=== PATIENT | male | born 1975 | race Caucasian/White ===

== ENCOUNTER 2020-01-19 10:58 | Emergency (ER) | payer OTHER, SELFPAY ==
[2020-01-19 10:59] VITALS: BP 161/110; PULSE 90; RESP 16; TEMP 36.4; BMI 29.8
--- NOTE | 2020-01-19 11:15 | ED.VIS.UPPEX ---
History of Present Illness Chief Complaint: Upper Extremity Injury Informant: Patient Occurred: Today - EVI Mechanism/Context: Injury, Work Related Context: Sudden Onset - stuck in a machine Timing: Continuous Quality of Pain: - - sore Location: left long finger Current Severity: Mild Maximum Severity: Moderate Worsened by: palpation Relieved by: leaving alone Associated Symptoms: Negative for: Parasthesia, Weakness, Loss of Funtion Narrative: Patient was at work today, he was trying to clear a jam in a machine, he thought that the machine was off and stuck, however when he cleared to jam it was still on and moved, jamming his finger in the hole that he put it through to clear the jam. He is right-hand dominant. Injured only his left long finger. Tetanus Immunization: 5-10 years Past Medical History - Allergies and Home Meds Allergies/Adverse Reactions: Allergies Penicillins Allergy (Verified 01/19/20 11:02) PT UNSURE OF REACTION Past Medical History: None Lives: With Family Drugs: None Review of Systems Gastrointestinal: Denies: Nausea, Vomiting Musculoskeletal: Reports: Extremity Pain. Denies: Swelling Skin: Reports: Wounds. Denies: Abscess Neurological: Denies: Headache, Weakness, Numbness Physical Exam Vital Signs/Narrative: Vital Signs Temp Pulse Resp BP 01/19/20 10:59 97.6 F L 90 16 161/110 H General: Well nourished, Well developed, - - NAD Head: Normocephalic, Atraumatic Extremeties: All tendon function including FDP of the left long finger are intact. Extensor intact. Only injury is to the long finger on the left, distal phalanx. There is bruising at the pad but the skin is intact there. There is a laceration completely across the nail, it from the proximal aspect, which is intact in the root/cuticle without any disruption or trauma there. Laceration progresses into the nailbed with some minor bleeding present. Entire distal phalanx is tender but there is no deformity there. Skin: Normal color, Trauma - 1cm laceration to nail and nail bed of left long finger. Volar bruising, but intact. Neurological: Alert, Oriented x3, Cranial nerves II-XII grossly intact, Normal Strength, Normal Sensation, Normal Gait Psychological: Normal affect, Normal Mood Diagnostic/Tx/Re-eval Clinical Impression(s) from Imaging Studies Finger X-Ray 01/19/20 11:30 IMPRESSION: Nondisplaced fracture of the distal phalanx, tuft, of the third digit with soft tissue edema. Electronically Signed: Britney Cronin MD at 12:14 EDT Tel , Service support , - Medical Decision Making X-ray shows a tuft fracture, it is just below the dorsal laceration through the nail bed, making it an open fracture. It was irrigated under pressure, the laceration was repaired after the distal piece of the nail was removed from its remaining attachment to the nailbed, and an antibiotic dressing with a cage splint was placed afterwards. It was tolerated well without complications. He was prescribed Duricef to prevent infection and will follow-up with [facility], he is comfortable with that plan given appropriate work restrictions. Procedures - Lacerations L long finger Length: 1 cm Depth: Sub Q Shape: Linear Prep: Sterile Conditions, Chlorhexadine Laceration repair: Digital block, Irrigated, Lidocaine - 8cc, Skin sutures Irrigated (ml): 50 Number of Sutures/[place]: 2 Suture Information: Ethilon, Simple, 4-0 Comment: Wound at edge of remaining proximal half of nail; proximal aspect of sutures placed through the distal aspect of the nail that is left. Procedure(s): Digital block -- 8 cc total used after isopropanol prep at proximal aspect from a dorsal approach of left long finger. Good anesthesia obtained. Nail removal -- after anesthesia obtained, distal half of nail which was already from the proximal half was gently pried from the nailbed at its remaining attachment without complication or further injury. ED Disposition - Plan for ED Patient: Disposition: Home or Assisted Living Diagnosis: Open fracture of tuft of distal phalanx of finger, Laceration of nail bed of finger Instructions: ED Fx Finger Open, ED Laceration Hand Prescriptions: Cefadroxil Hydrate [Duricef] 500 mg PO BID 5 Days #10 cap Transmission Status: Pending to [facility]/pharmacy #[id number] Referrals: Kervin Feliciano DO [Primary Care Provider] - [facility] [GROUP OF PHYSICIANS] - 10 Day for suture removal Additional Instructions: Visit because the fracture was beneath the laceration, you need to take the attached antibiotics for 5 days until finished, just to prevent infection. If you see any signs or symptoms of infection, which include increased pain, swelling, redness, and/or purulent discharge, either return to the ER or your doctor. The dressing and splint may be taken off to wash your hands and/or shower, then afterwards place antibiotic ointment on the area where the sutures are followed by gauze dressing and replaced the splint. Do this until you are seen at [facility] and told otherwise.
--- NOTE | 2020-01-19 11:30 | RAD_ITS ---
STUDY: X-RAY - LEFT HAND, ATTENTION 3rd FINGER REASON FOR EXAM: Male, 44 years old. CRUSH INJURY TO LEFT DISTAL MIDDLE FINGER TECHNIQUE: 3 view(s) of the finger were obtained. COMPARISON: None. FINDINGS: Normal metacarpal head. Normal metacarpophalangeal joint. Normal proximal phalanx. Normal middle phalanx. There is a nondisplaced fracture of the distal phalanx of the third digit with soft tissue edema. Normal proximal interphalangeal joint. Normal distal interphalangeal joint. RAD/Finger(s) Min 2 Views IMPRESSION: Nondisplaced fracture of the distal phalanx, tuft, of the third digit with soft tissue edema. Electronically Signed: Britney Cronin MD at 12:14 EDT Tel , Service support ,
[2020-01-19 12:42] VITALS: RESP 16
== END 2020-01-19 12:52 | disposition home or self-care (01) ==
PROVIDERS: Emergency Provider Emergency Medicine; PCP Family Medicine
DX: S62.663B Nondisplaced fracture of distal phalanx of left middle finger, initial encounter for open fracture (principal); W31.9XXA Contact with unspecified machinery, initial encounter; Y93.89 Activity, other specified; Y92.89 Other specified places as the place of occurrence of the external cause; Y99.0 Civilian activity done for income or pay
CPT/HCPCS: 11760; 73140; 99284

== ENCOUNTER 2020-12-04 10:17 | Outpatient (RCR) | payer OTHER, SELFPAY ==
[2020-01-29 07:32] VITALS: BMI 29.8
== END 2020-12-04 23:59 ==
LOC: IMMUN 10:17
PROVIDERS: PCP Family Medicine; Visit Provider Family Medicine
DX: Z23 Encounter for immunization (principal)
CPT/HCPCS: 0011A; 0012A